=== PATIENT | female | born 1980 | race Caucasian/White ===

== ENCOUNTER 2020-10-03 19:26 | Emergency (ER) | payer SELFPAY ==
[~2020-10-03] VITALS: Ht 162.6 cm; Wt 86.5 kg
[2020-10-03 19:36] VITALS: BP 131/88
--- NOTE | 2020-10-03 19:38 | PHYS DOC ---
Past History Past Medical History: No Pertinent History Past Surgical History: No Surgical History Smoking: Cigarettes, Greater than 1 pack/day Alcohol Use: None Drug Use: None General Adult EDM: Chief Complaint: LACERATION/AVULSION HPI: HPI: ".. I was cutting potatoes for dinner.. and got my right thumb tip..." Patient is a 40 year old female who presents with above hx and avulsion of tip of right thumb with mandolin while cutting up potatoes for dinner. Has complete loss of tip of right thumb and partial of nail. Patient presents because of the continued bleeding after the injury. Patient denies any history of coagulopathy. Patient not on any anticoagulants. Does not take NSAIDs. Patient is normally healthy. Patient does not remember her last tetanus shot. Patient is right-hand dominant. No recent travel. No history immunosuppression. Patient does smoke tobacco. Review of Systems: Review of Systems: Constitutional: Denies fever or chills Eyes: Denies change in visual acuity HENT: Denies nasal congestion or sore throat Respiratory: Denies cough or shortness of breath Cardiovascular: Denies chest pain or edema GI: Denies abdominal pain, nausea, vomiting, bloody stools or diarrhea : Denies dysuria Musculoskeletal: Complains of right thumb pain and avulsion injury to tip. Integument: Denies rash Neurologic: Denies headache, focal weakness or sensory changes Endocrine: Denies polyuria or polydipsia Lymphatic: Denies swollen glands Psychiatric: Denies depression or anxiety Family History: Family History: Noncontributory to presentation Current Medications: Current Meds: See nursing for home meds Allergies: Allergies: Allergies Coded Allergies Type Severity Reaction Last Updated Verified No Known Drug Allergies 10/03/20 No Physical Exam: PE: Constitutional: Win acute distress, non-toxic appearance. [] HENT: Normocephalic, atraumatic, bilateral external ears normal, oropharynx moist, no oral exudates, nose normal. [] Eyes: PERRLA, EOMI, conjunctiva normal, no discharge. [] Neck: Normal range of motion, no tenderness, supple, no stridor. [] Cardiovascular:Heart rate regular rhythm, no murmur [] Lungs & Thorax: Bilateral breath sounds equal apex with few scattered wheezes on auscultation [] Abdomen: Bowel sounds normal, soft, no tenderness, no masses, no pulsatile masses. [] Skin: Warm, dry, no erythema, no rash. [] Back: No tenderness, no CVA tenderness. [] Extremities: No tenderness, no cyanosis, no clubbing, ROM intact, no edema. [] Injury to right thumb as per HPI Neurologic: Alert and oriented X 3, normal motor function, normal sensory function, no focal deficits noted. [] Psychologic: Affect anxious, judgement normal, mood normal. [] EKG: EKG: [] Radiology/Procedures: Radiology/Procedures: [] Heart Score: C/O Chest Pain: N/A Risk Factors: Risk Factors: DM, Current or recent (<one month) smoker, HTN, HLP, family h istory of CAD, obesity. Risk Scores: Score 0 - 3: 2.5% MACE over next 6 weeks - Discharge Home Score 4 - 6: 20.3% MACE over next 6 weeks - Admit for Clinical Observation Score 7 - 10: 72.7% MACE over next 6 weeks - Early Invasive Strategies Course & Med Decision Making: Course & Med Decision Making Pertinent Labs and Imaging studies reviewed. (See chart for details) Wound care-cleaned with surgical soap and water. Irrigated thumb with normal saline. Applied Gelfoam and then a compression dressing. Patient to leave this dressing in place for the next 3 days. Must keep injury dry and clean. If the dressing becomes soiled or wet must be removed immediately. And then start applying Polysporin 4 times a day. Monitor for infection. May take Tylenol for pain tonight. Avoid NSAIDs for the next 24 hours. Patient follow-up primary care. Return if any concerns. Advised patient do not be concerned if she bleeds through current dressing. Just reinforce dressing. Return if any concerns. Impression: 1. Avulsion injury to right hip of thumb (approximate loss of 1 cm [employer] and skin) [] Dragon Disclaimer: Dragon Disclaimer: This electronic medical record was generated, in whole or in part, using a voice recognition dictation system. Departure Departure: Referrals: PCP,CARRIE (PCP) Keysha Disclaimer This chart was dictated in whole or in part using Voice Recognition software in a busy, high-work load, and often noisy Emergency Department environment. It may contain unintended and wholly unrecognized errors or omissions. HANY GLEASON MD October 03, 2020 19:38
[2020-10-03] MEDS ORDERED: DIPH,PERTUSS(ACELL),TET VAC/PF 0.5 ML SYRINGE. VAX IM ONE (20:00)
[2020-10-03] MEDS ORDERED: GELATIN SPONGE SIZE 12-7MM SPONGE. TP ONE (20:00)
== END 2020-10-03 20:16 | disposition home or self-care (01) ==
LOC: ER 19:26
DX: S61.101A Unspecified open wound of right thumb with damage to nail, initial encounter (principal); F17.210 Nicotine dependence, cigarettes, uncomplicated; W26.0XXA Contact with knife, initial encounter; Y93.89 Activity, other specified; Y92.89 Other specified places as the place of occurrence of the external cause; Y99.8 Other external cause status
CPT/HCPCS: 90471; 90715; 99283